=== PATIENT | female | born 1940 | race Two or more races ===

== ENCOUNTER 2024-01-21 09:30 | Emergency (ER) | payer MEDICARE, OTHER ==
[~2024-01-21] VITALS: Ht 162.6 cm; Wt 56.7 kg
[2024-01-21 14:21] VITALS: BP 130/85; TEMP 98; O2SAT 97
== END 2024-01-21 14:22 | disposition home health service (06) ==
LOC: ER 09:35
DX: S09.90XA Unspecified injury of head, initial encounter (principal); I10 Essential (primary) hypertension; F41.9 Anxiety disorder, unspecified; F20.9 Schizophrenia, unspecified; F32.9 Major depressive disorder, single episode, unspecified; W18.30XA Fall on same level, unspecified, initial encounter; Y93.89 Activity, other specified; Y92.89 Other specified places as the place of occurrence of the external cause; Y99.8 Other external cause status
CPT/HCPCS: 70450-TC; 72125-TC